=== PATIENT | male | born 1980 | race Caucasian/White ===

== ENCOUNTER 2017-01-23 18:28 | Emergency (ER) | payer BC, OTHER ==
[2017-01-23 18:43] VITALS: BP 153/84
--- NOTE | 2017-01-23 19:01 | UC ---
Lower Extremity/Ankle HPI - HPI Summary HPI Summary: complaint of left foot pain large metal harmony crashed onto his foot today while moving furniture swelling and feels painful when he is walking non radiating pain took some ibuprofen at 1:30 today - History of Current Complaint Chief Complaint: UCLowerExtremity Stated Complaint: FOOT INJURY Time Seen by Provider: 01/23/17 18:50 Hx Obtained From: Patient Onset/Duration: Sudden Onset Aggravating Factor(s): Standing Alleviating Factor(s): Rest Able to Bear Weight: Yes - Allergies/Home Medications Allergies/Adverse Reactions: Allergies Allergy/AdvReac Type Severity Reaction Status Date / Time Acetaminophen AdvReac Abdominal Verified 01/23/17 18:43 Pain laundry soap, metals Allergy Rash Uncoded 12/08/15 18:07 NARCOTICS AdvReac Abdominal Uncoded 01/23/17 18:43 Pain Home Medications: Home Medications Lvqwuoh-Tmvycyrwmeigr-Zontteue [Excedrin Extra Strength] 3 tab PO DAILY PRN [History Confirmed 01/23/17] PMH/Surg Hx/FS Hx/Imm Hx Previously Healthy: Yes - sleep apnea - Surgical History Surgical History: Yes Surgery Procedure, Year, and Place: left shoulder surgery 2006. tonsilectomy - Family History Known Family History: Positive: None, Diabetes - Social History Occupation: Employed Full-time Lives: With Family Alcohol Use: Rare Substance Use Type: None Smoking Status (MU): Heavy Every Day Tobacco Smoker Type: Cigarettes Amount Used/How Often: 3/4 PPD Length of Time of Smoking/Using Tobacco: 17 YRS Household Exposure Type: Cigarettes Cessation Counseling: Patient Advised to Stop - Immunization History Most Recent Tetanus Shot: UNKNOWN Review of Systems Constitutional: Negative Skin: Negative Eyes: Negative ENT: Negative Respiratory: Negative Cardiovascular: Negative Gastrointestinal: Negative Genitourinary: Negative Motor: Negative Neurovascular: Negative Musculoskeletal: Other: - left foot apin Neurological: Negative Psychological: Negative All Other Systems Reviewed And Are Negative: Yes Physical Exam Triage Information Reviewed: Yes Appearance: No Pain Distress, Well-Nourished Vital Signs: Initial Vital Signs Temp 98 F 01/23/17 18:36 Pulse 65 01/23/17 18:36 Resp 20 01/23/17 18:36 BP 153/84 01/23/17 18:36 Pulse Ox 99 01/23/17 18:36 Vital Signs Reviewed: Yes Eyes: Positive: Conjunctiva Clear ENT: Positive: Pharynx normal, TMs normal Neck: Positive: No Lymphadenopathy Respiratory: Positive: Lungs clear, Normal breath sounds, No respiratory distress Cardiovascular: Positive: RRR, No Murmur, Pulses Normal Abdomen Description: Positive: Nontender, Soft Bowel Sounds: Positive: Present Musculoskeletal: Positive: Other: - LLE-edema and tenderness over 2nd 3rd and 4th metatarsals. Full ROM dorsi/plantar flexion, inversion & eversion. Kaleva test negative. Neurological: Positive: Alert Psychological Exam: Normal Skin Exam: Normal Lower Extremity Course/Dx - Differential Dx/Diagnosis Differential Diagnosis/HQI/PQRI: Contusion, Fracture (Closed), Sprain, Strain Provider Diagnoses: left foot contusion, elevated blood pressure Discharge - Discharge Plan Condition: Stable Disposition: HOME Patient Education Materials: Foot Contusion (ED), RICE Therapy (ED) Forms: *Work Release Referrals: Dilia Wilburn MD [Primary Care Provider] - Additional Instructions: Increase fluids and rest Take acetaminophen or ibuprofen for fever or pain Please review your discharge instructions. If your symptoms do not improve please call your primary care provider or return to urgent care. Your blood pressure is elevated. Please contact your primary care provider within 1 -4 weeks for further evaluation
--- NOTE | 2017-01-23 19:27 | RAD ---
INDICATION: Left foot injury. TECHNIQUE: 3 views of the left foot were obtained. FINDINGS: There is focal soft tissue swelling dorsal to the metatarsal bones. No fracture is seen. Joint spaces appear maintained. IMPRESSION: SOFT TISSUE SWELLING, NO FRACTURE IS SEEN.
== END 2017-01-23 19:46 | disposition home or self-care (01) ==
LOC: UCCORT 18:28
DX: S90.32XA Contusion of left foot, initial encounter (principal); F17.210 Nicotine dependence, cigarettes, uncomplicated; W20.8XXA Other cause of strike by thrown, projected or falling object, initial encounter; Y93.89 Activity, other specified; Y92.9 Unspecified place or not applicable; Z79.82 Long term (current) use of aspirin; R03.0 Elevated blood-pressure reading, without diagnosis of hypertension
CPT/HCPCS: 99211; G0463

== ENCOUNTER 2017-12-10 14:08 | Emergency (ER) | payer BC ==
[2017-12-10 14:56] VITALS: BP 149/98
--- NOTE | 2017-12-11 12:24 | UC ---
Complaint Male HPI - HPI Summary HPI Summary: Patient is a 37-year-old male who presents to the urgent care for evaluation of urinary hesitancy and urgency times one day. Patient states he has a history of kidney stones and believes he passed a stone on Tuesday. Patient states that pain has resolved but urinary symptoms are ongoing. He has no significant past medical history. He denies fever, chills, nausea, vomiting. Denies testicular pain or swelling. Denials penile discharge or rashes. Symptoms are mild in severity. No current modifying factors. - History of Current Complaint Chief Complaint: UCGU Stated Complaint: URINARY Time Seen by Provider: 12/10/17 15:48 Hx Obtained From: Patient Pain Intensity: 0 Pain Scale Used: 0-10 Numeric - Allergies/Home Medications Allergies/Adverse Reactions: Allergies Allergy/AdvReac Type Severity Reaction Status Date / Time MS Acetaminophen AdvReac Abdominal Verified 12/10/17 14:56 [Acetaminophen] Pain laundry soap, metals Allergy Rash Uncoded 12/08/15 18:07 NARCOTICS AdvReac Abdominal Uncoded 01/23/17 18:43 Pain PMH/Surg Hx/FS Hx/Imm Hx Previously Healthy: Yes - Surgical History Surgical History: Yes Surgery Procedure, Year, and Place: left shoulder surgery 2006. tonsilectomy - Family History Known Family History: Positive: None, Diabetes - Social History Occupation: Employed Full-time Lives: With Family Alcohol Use: Rare Substance Use Type: None Smoking Status (MU): Heavy Every Day Tobacco Smoker Type: Cigarettes Amount Used/How Often: 3/4 PPD Length of Time of Smoking/Using Tobacco: since age 18 Have You Smoked in the Last Year: Yes Household Exposure Type: Cigarettes - Immunization History Most Recent Tetanus Shot: UNKNOWN Review of Systems Constitutional: Negative ENT: Negative Respiratory: Negative Cardiovascular: Negative Gastrointestinal: Negative Genitourinary: Frequency, Urgency Is Patient Immunocompromised?: No All Other Systems Reviewed And Are Negative: Yes Physical Exam Triage Information Reviewed: Yes Appearance: Well-Appearing - Pt. sitting on exam table no acute distress. Pleasant. Vital Signs: Initial Vital Signs Temp 98.3 F 12/10/17 14:47 Pulse 76 12/10/17 14:47 Resp 16 12/10/17 14:47 BP 149/98 12/10/17 14:47 Pulse Ox 100 12/10/17 14:47 Vital Signs Reviewed: Yes Eyes: Positive: Conjunctiva Clear Neck: Positive: Supple Abdomen Description: Positive: Nontender, Soft Musculoskeletal Exam: Normal Neurological Exam: Normal Psychological Exam: Normal Complaint Male Course/Dx - Course Course Of Treatment: Patient presenting to the ER for urinary frequency and urgency. He is afebrile with stable vital signs. He believes he passed a kidney stone on Tuesday. Patient may denies abdominal or flank pain. Denies testicular pain or swelling. Urinalysis showing elevated RBCs without signs of infection. Concerned patient has been obstructive kidney stone causing his symptoms. CT scan ordered. This was discussed with patient and patient does not wish to have CT scan performed today. He would like to follow up outpatient. Patient my concerns and he understands them. Given urinary symptoms and blood and urine will treat for suspected UTI. Keflex prescribed. We'll send urine for culture. Patient was given the information for urology follow-up. To present to the ER for fever, pain, vomiting. Patient understands and agrees with plan. - Differential Dx/Diagnosis Differential Diagnosis/HQI/PQRI: Ureteral Calculi, Urinary Tract Infection Provider Diagnoses: 1. Hematuria 2. Suspected UTI Discharge - Sign-Out/Discharge Documenting (check all that apply): Discharge/Admit/Transfer - Discharge Plan Condition: Good Disposition: HOME Prescriptions: Cephalexin CAP* [Keflex CAP*] 500 mg PO BID #20 cap Patient Education Materials: Kidney Stones (ED), Urinary Tract Infection in Men (ED) Referrals: Dilia Wilburn MD [Primary Care Provider] - Guillermo Mckeon MD [Medical Doctor] - Additional Instructions: Recommended a CT scan of abdominal or pelvis today to evaluate for a kidney stone Schedule a follow up appointment with your PCP and urology Take antibiotic as directed Go to ER for fever, pain, vomiting or new symptoms - Billing Disposition and Condition Condition: GOOD Disposition: HOME
== END 2017-12-10 16:52 | disposition home or self-care (01) ==
LOC: UCCORT 14:08
DX: R31.9 Hematuria, unspecified (principal); Z88.6 Allergy status to analgesic agent; Z88.5 Allergy status to narcotic agent; Z91.048 Other nonmedicinal substance allergy status; F17.210 Nicotine dependence, cigarettes, uncomplicated
CPT/HCPCS: 81003; 87086; 99212; G0463

== ENCOUNTER 2018-02-27 13:37 | Emergency (ER) | payer BC, OTHER ==
[2018-02-27 14:19] VITALS: BP 151/91
--- NOTE | 2018-02-27 14:51 | ED ---
Laceration/Wound HPI - HPI Summary HPI Summary: Her old male with a history of anxiety presents today with laceration to the dorsal aspect of his right thumb that occurred 2.5 hours ago while at work. He is right-hand dominant. His tetanus is up-to-date having had it last in 2016. He states his laceration is superficial but it would not stop bleeding. At this point it has stopped. He denies any other injury. He has no pain. He is able to flex his thumb normally. - History of Current Complaint Stated Complaint: WC RIGHT THUMB COMPLAINT Time Seen by Provider: 02/27/18 14:44 Hx Obtained From: Patient Pain Intensity: 3 - Allergy/Home Medications Allergies/Adverse Reactions: Allergies Allergy/AdvReac Type Severity Reaction Status Date / Time acetaminophen Allergy Abdominal Verified 02/27/18 14:19 Pain laundry soap, metals Allergy Rash Uncoded 12/08/15 18:07 NARCOTICS AdvReac Abdominal Uncoded 01/23/17 18:43 Pain Home Medications: Home Medications Lisinopril 20 mg PO DAILY 02/27/18 [History Confirmed 02/27/18] PMH/Surg Hx/FS Hx/Imm Hx Previously Healthy: Yes Endocrine/Hematology History: Denies: Hx Diabetes Cardiovascular History: Reports: Hx Hypertension Respiratory History: Denies: Hx Asthma - Surgical History Surgery Procedure, Year, and Place: left shoulder surgery 2006. tonsilectomy. COLONOSCOPY Infectious Disease History: No Infectious Disease History: Denies: Traveled Outside the [place] in Last 30 Days - Family History Known Family History: Positive: None, Diabetes - Social History Alcohol Use: Rare Substance Use Type: Reports: None Smoking Status (MU): Heavy Every Day Tobacco Smoker Type: Cigarettes Amount Used/How Often: 3/4 PPD Length of Time of Smoking/Using Tobacco: since age 18 Have You Smoked in the Last Year: Yes Review of Systems Constitutional: Negative Negative: Arthralgia, Decreased ROM Positive: Other - laceration Negative: Weakness, Paresthesia, Numbness Negative: Anxious All Other Systems Reviewed And Are Negative: Yes Physical Exam Triage Information Reviewed: Yes Vital Signs On Initial Exam: Initial Vitals Temp Pulse Resp BP Pulse Ox 97.4 F 66 16 151/91 99 02/27/18 14:14 02/27/18 14:14 02/27/18 14:14 02/27/18 14:14 02/27/18 14:14 Vital Signs Reviewed: Yes Appearance: Positive: Well-Appearing, No Pain Distress Skin: Positive: Other - C shaped laceration to the IP joint dorsally of the right thumb. Total length of laceration is 1.5 cm. Respiratory/Lung Sounds: Positive: Clear to Auscultation Cardiovascular: Positive: RRR Musculoskeletal: Positive: Other - Right thumb with a dorsal laceration but no involvement of the tendons or joint space. Normal range of motion. Normal tendon function. Neurological: Positive: Other - Intact light touch sensation to the affected right thumb Procedures - Laceration/Wound Repair Thumb Location: upper extremity, Other - right dorsal thumb at the IP joint, 1.5 cm Description: Irregular Length, Depth and Shape: 1.5 cm C-shaped on the dorsal IP joint of the right thumb Laceration/Wound Explored: clean, Other - cleaned with soap and water under the sink Closure: Skin Adhesive, SteriStrips - one Steri-Strip Sterile Dressing Applied?: No - left open after Dermabond dried Diagnostics - Vital Signs Vital Signs Temp Pulse Resp BP Pulse Ox 02/27/18 14:14 97.4 F 66 16 151/91 99 - Laboratory Lab Statement: Any lab studies that have been ordered have been reviewed, and results considered in the medical decision making process. Laceration Repair Course/Dx - Course Course Of Treatment: Patient required washout under the sink with soap and water and then was repaired with Dermabond and Steri-Strips. - Clinical Impression Provider Diagnoses: Laceration of right thumb without complication Discharge - Sign-Out/Discharge Documenting (check all that apply): Patient Departure - Discharge Plan Condition: Improved Disposition: HOME Patient Education Materials: Skin Adhesive Care (ED) Referrals: Dilia Wilburn MD [Primary Care Provider] - Additional Instructions: Keep clean and dry. Remove the Steri-Strips in 7 days' time. Return with concerns for infection, worse or other concerns. - Billing Disposition and Condition Condition: IMPROVED Disposition: Home
== END 2018-02-27 14:59 | disposition home or self-care (01) ==
LOC: UCCORT 13:37
DX: S61.011A Laceration without foreign body of right thumb without damage to nail, initial encounter (principal); Z88.8 Allergy status to other drugs, medicaments and biological substances; Z91.048 Other nonmedicinal substance allergy status; Z88.5 Allergy status to narcotic agent; I10 Essential (primary) hypertension; Y92.9 Unspecified place or not applicable; Y99.0 Civilian activity done for income or pay; F17.210 Nicotine dependence, cigarettes, uncomplicated; Z79.899 Other long term (current) drug therapy; X58.XXXA Exposure to other specified factors, initial encounter
CPT/HCPCS: 12001; 99211; G0463